=== PATIENT | female | born 1980 | race Caucasian/White ===

== ENCOUNTER 2022-02-17 16:59 | Emergency (ER) | payer OTHER ==
[2022-02-17 18:28] LABS: BASOPHIL 0.3 % (0-2); EOSINOPHIL 0.7 % (0-5); HCT 44.1 % (37.0-47.0); HGB 14.4 g/dl (12.5-16.0); LYMPHOCYTE 23.4 % (15-48); MCH 26.5 pg (25.0-31.0); MCHC 32.7 g/dL (32.0-36.0); MCV 81.2 fL (78.0-100.0); MONOCYTE 7.3 % (0-12); NEUTROPHIL 67.8 % (41-80); NRBC 0; PLT 238 K/uL (150-400); RBC 5.43 M/uL (4.20-5.40); WBC 5.9 K/uL (4.0-10.5)
[2022-02-17 18:45] LABS: BUN/CREAT RATIO (CALC) 16.1 RATIO; CREATININE 0.62 mg/dL (0.51-0.95); POTASSIUM 3.5 mmol/L (3.5-5.1)
[2022-02-17] MEDS ORDERED: IBUPROFEN800 MG PO (21:09)
[2022-02-17] MEDS ORDERED: ONDANSETRON ODT4 MG PO (21:09)
[2022-02-17] MEDS ORDERED: MEDROL 4MG DOSEP4 MG PO (21:09)
== END 2022-02-17 21:25 | disposition home or self-care (01) ==
LOC: FER 16:59
PROVIDERS: Nurse Practitioner Family
DX: U07.1 COVID-19 (principal); Z28.310 Unvaccinated for COVID-19
CPT/HCPCS: 36415; 80048; 85025; J1100; J2405; J7030